=== PATIENT | male | born 1980 | race Caucasian/White ===

== ENCOUNTER 2019-05-26 08:01 | Outpatient (CLI) | payer OTHER ==
--- NOTE | 2019-05-26 16:12 | Ultrasound Report ---
Reason: ESSENTIAL (PRIMARY) HYPERTENSION Procedure Date: 05/26/2019 Accession Number: [id number] / [id number] Procedure: US - Arterial Visceral Complete CPT Code: FULL RESULT: EXAM: RENAL ARTERY DOPPLER ULTRASOUND EXAM DATE: 05/26/2019 09:27 AM. CLINICAL HISTORY: Essential (primary) hypertension. COMPARISON: None. TECHNIQUE: Real-time sonographic vascular imaging was performed by the digital court reporter through the renal arterial system with a linear transducer utilizing color-flow, Doppler flow, and spectral analysis. Multiple correspondence representative static images were saved for review. FINDINGS: Right kidney measures up to 10.6 cm in maximal sagittal dimension and left kidney measures up to 11.7 cm in maximal sagittal dimension with normal echotexture and no hydronephrosis on either side. The aorta, bilateral renal veins and sampled renal arteries as well as intraparenchymal renal branches are patent by color Doppler and spectral Doppler as analyzed. Brisk systolic upstrokes are preserved throughout the sample arterial systems with select renal artery aortic ratios and peak systolic velocities in centimeters per second as below. Right Kidney: 10.6 x 5.4 x 4.4 cm. Echotexture: Within normal limits. Right Segmental Artery: Upper pole: PSV 17 cm/sec, RI 0.58. Mid pole: PSV 16 cm/sec, RI 0.54. Lower pole: PSV 16 cm/sec, RI 0.60. Right Renal Artery: Origin: PSV 75 cm/sec, RA/AO 0.65. Proximal: PSV 79 cm/sec, RA/AO 0.68. Mid: PSV 88 cm/sec, RA/AO 0.76. Distal: PSV 73 cm/sec, RA/AO 0.63. Aorta PSV: 116 cm/sec. RRV Patent: Yes. Left Kidney: 11.7 x 6.1 x 5.2 cm. Echotexture: Within normal limits. Left Segmental Artery: Upper pole: PSV 23 cm/sec, RI 0.56. Mid pole: PSV 14 cm/sec, RI 0.58. Lower pole: PSV 21 cm/sec, RI 0.57. Left Renal Artery: Origin: PSV 75 cm/sec, RA/AO 0.65. Proximal: PSV 93 cm/sec, RA/AO 0.80. Mid: PSV 72 cm/sec, RA/AO 0.62. Distal: PSV 76 cm/sec, RA/AO 0.66. LRV Patent: Yes. IMPRESSION: No evidence of compromise to the vascular supply of the kidneys. CRITERIA FOR CLASSIFICATION OF RENAL ARTERY (RA) DISEASE BY DUPLEX SCANNING: RA Diameter Reduction/ RA PSV/ RAR: Normal, < 180 cm/sec, < 3.5 < 60%, >= 180 cm/sec, < 3.5 >= 60%, >= 180 cm/sec, >= 3.5 Total Occlusion: Undetectable; Not applicable RADIA
== END 2019-05-26 08:02 | disposition home or self-care (01) ==
LOC: DI 08:01
PROVIDERS: ATTEND Registered Nurse Diabetes Educator
DX: I10 Essential (primary) hypertension (principal)
CPT/HCPCS: 93975

== ENCOUNTER 2021-11-29 13:13 | Emergency (ER) | payer OTHER ==
[2021-11-29 13:40] LABS: BASOPHILS % (AUTO) 0.5 %; EOSINOPHILS # (AUTO) 0.4 10^3/uL (0.0-0.7); EOSINOPHILS % (AUTO) 4.7 %; HCT - HEMATOCRIT 43.2 % (42.0-52.0); HGB - HEMOGLOBIN 15.1 g/dL (14.0-18.0); LYMPHOCYTES # (AUTO) 2.4 10^3/uL (1.5-3.5); LYMPHOCYTES % (AUTO) 31.9 %; MEAN CORPUSCULAR HEMOGLOBIN 31.5 pg (27.0-31.0); MEAN CORPUSCULAR VOLUME 90.2 fL (80.0-94.0); MEAN PLATELET VOLUME 9.6 fL (7.4-11.4); MONOCYTES # (AUTO) 0.4 10^3/uL (0.0-1.0); MONOCYTES % (AUTO) 5.8 %; NEUTROPHILS # (AUTO) 4.4 10^3/uL (1.5-6.6); NEUTROPHILS % (AUTO) 56.8 %; PLT - PLATELET COUNT 320 10^3/uL (130-450); RED BLOOD COUNT 4.79 10^6/uL (4.70-6.10); RED CELL DISTRIBUTION WIDTH 12.6 % (12.0-15.0); WHITE BLOOD COUNT 7.7 x10^3/uL (4.8-10.8)
--- NOTE | 2021-11-29 13:55 | XRAY Report ---
PROCEDURE: Chest 1 View X-Ray INDICATIONS: Chest pain TECHNIQUE: One view of the chest was acquired. COMPARISON: None. FINDINGS: Surgical changes and devices: None. Lungs and pleura: No pleural effusions or pneumothorax. Lungs are clear. Mediastinum: Mediastinal contours appear normal. Heart size is normal. Bones and chest wall: No suspicious bony lesions. Overlying soft tissues appear unremarkable. IMPRESSION: No acute cardiopulmonary abnormality. Reviewed by: Jovi Hubbard MD on 11/29/2021 1:54 PM [facility] Approved by: Jovi Hubbard MD on 11/29/2021 1:54 PM [facility] Station ID: [id number]
[2021-11-29 13:57] LABS: ALBUMIN 4.6 g/dL (3.2-5.5); ALBUMIN/GLOBULIN RATIO 1.4 (1.0-2.2); CALCIUM 9.2 mg/dL (8.5-10.3); CREATININE 1.1 mg/dL (0.6-1.2); POTASSIUM 3.4 mmol/L (3.5-5.0); TOTAL PROTEIN 7.8 g/dL (6.7-8.2)
--- NOTE | 2021-11-29 14:56 | ED Physician Documentation ---
History of Present Illness - Stated complaint Stated Complaint: CHEST PX - Chief complaint Chief Complaint: Cardiac - Additonal information Additional information: 41-year-old male who carries a history of hypertension presents to the emergency department for evaluation of sharp chest pain. He reports that it woke him up last night from sleep it was nonradiating. No associated nausea or diaphoresis. He went back to sleep and this morning when he woke up he again found that he had some chest pressure again that lasted just a few seconds. He denies any shortness of air. Chest pain is not pleuritic. Nonexertional. No history of similar. No tobacco or vape use. He does have a history of hypertension for which he takes amlodipine, lisinopril and hydrochlorothiazide. No previous history of coronary artery disease. No family history of sudden early cardiac . He called [employer] who advised him to come to the ER. Review of Systems Constitutional: denies: Fever, Chills Eyes: reports: Reviewed and negative Throat: reports: Reviewed and negative Cardiac: reports: Chest pain / pressure. denies: Palpitations, Pedal edema, Calf pain Respiratory: denies: Dyspnea, Cough, Hemoptysis GI: reports: Reviewed and negative : reports: Reviewed and negative Skin: reports: Reviewed and negative PD PAST MEDICAL HISTORY - Past Medical History Past Medical History: Yes - Allergies Allergies/Adverse Reactions: Allergies Allergy/AdvReac Type Severity Reaction Status Date / Time No Known Drug Allergies Allergy Verified 11/29/21 13:24 - Social History Does the pt smoke?: No Smoking Status: Never smoker PD ED PE NORMAL - General General: Alert and oriented X 3, No acute distress - HEENT HEENT: PERRL - Neck Neck: Supple, no meningeal sign, No adenopathy, No JVD - Cardiac Cardiac: RRR, No murmur, No gallop - Respiratory Respiratory: No respiratory distress, Clear bilaterally - Abdomen Abdomen: Normal bowel sounds, Soft - Back Back: No CVA TTP, No spinal TTP Results - Vitals Vitals: Vital Signs - 24 hr 11/29/21 13:22 Temperature 36.0 C L Heart Rate 66 Respiratory 16 Rate Blood Pressure 146/91 H O2 Saturation 95 Oxygen O2 Source Room air - EKG (time done) 1316 Rate: Rate (enter#) (69) Rhythm: NSR [place]: Normal Intervals: Normal [place] QRS: Poor R wave progression Ischemia: Normal ST segments Compare to prior EKG: Old EKG unavailable Computer interpretation: Agree with computer - Labs Labs: Laboratory Tests 11/29/21 11/29/21 11/29/21 13:36 13:36 13:36 WBC 7.7 RBC 4.79 Hgb 15.1 Hct 43.2 MCV 90.2 MCH 31.5 H MCHC 35.0 RDW 12.6 Plt Count 320 MPV 9.6 Neut # (Auto) 4.4 Lymph # (Auto) 2.4 Ray # (Auto) 0.4 Eos # (Auto) 0.4 Baso # (Auto) 0.0 Absolute Nucleated RBC 0.00 Nucleated RBC % 0.0 Sodium 137 Potassium 3.4 L Chloride 98 L Carbon Dioxide 29 Anion Gap 10.0 BUN 16 Creatinine 1.1 Estimated GFR (MDRD) 73 L Glucose 133 H Calcium 9.2 Total Bilirubin 1.0 AST 30 ALT 40 Alkaline Phosphatase 45 Troponin I High Sens 4.4 Total Protein 7.8 Albumin 4.6 Globulin 3.2 Albumin/Globulin Ratio 1.4 Lipase 56 H PD MEDICAL DECISION MAKING - ED course Complexity details: reviewed results ED course: Well-appearing 41-year-old male presents emergency department for evaluation of sharp chest pain that woke him up from sleep last night and briefer episode again this morning. He does have a history of hypertension. Well-controlled with amlodipine, lisinopril and hydrochlorothiazide. Screening labs including troponin are unremarkable. Chest x-ray without acute focal opacity. Screening EKG is nonischemic. Patient's heart score is 2. Patient is advised to follow-up with [facility]. He would benefit from outpatient referral for outpatient stress test. Emergent return precautions were otherwise discussed. Departure - Departure Disposition: Home, Self Care Clinical Impression: Chest pain Qualifiers: Chest pain type: unspecified Qualified Code(s): R07.9 - Chest pain, unspecified Condition: Stable Record reviewed to determine appropriate education?: Yes Instructions: ED Heart Disease Risk Factors Comments: Mahamed it was a pleasure to meet you today. You are seen in the emergency department for chest pain. Your screening labs, EKG and chest x-ray are all without worrisome findings. However you do have some risk factors for heart disease that include being a male, over the age of 40 as well as having history of hypertension. Please discuss this ED visit with [facility]. He would benefit from outpatient referral for outpatient cardiac stress test or echocardiogram. If at any point you develop chest pain that worsens with ambulation, you have fainting episodes, chest pain causes you to be diaphoretic or nauseated or does not simply go away then please return immediately to the ER for second evaluation.
[2021-11-29 15:15] VITALS: BP 137/80
== END 2021-11-29 15:15 | disposition home or self-care (01) ==
LOC: ED 13:13
DX: R07.9 Chest pain, unspecified (principal); I10 Essential (primary) hypertension
CPT/HCPCS: 36415; 80053; 83690; 84484; 85025; 93005; 99283; 99284

== ENCOUNTER 2022-02-02 09:01 | Emergency (ER) | payer OTHER ==
[2022-02-02 09:57] LABS: BASOPHILS % (AUTO) 0.4 %; EOSINOPHILS # (AUTO) 0.2 10^3/uL (0.0-0.7); EOSINOPHILS % (AUTO) 1.7 %; HCT - HEMATOCRIT 42.9 % (42.0-52.0); HGB - HEMOGLOBIN 15.1 g/dL (14.0-18.0); LYMPHOCYTES # (AUTO) 1.8 10^3/uL (1.5-3.5); MEAN CORPUSCULAR HEMOGLOBIN 31.7 pg (27.0-31.0); MEAN CORPUSCULAR HGB CONC 35.2 g/dL (32.0-36.0); MEAN CORPUSCULAR VOLUME 90.1 fL (80.0-94.0); MEAN PLATELET VOLUME 10.2 fL (7.4-11.4); MONOCYTES # (AUTO) 0.8 10^3/uL (0.0-1.0); MONOCYTES % (AUTO) 7.5 %; NEUTROPHILS # (AUTO) 8.1 10^3/uL (1.5-6.6); NEUTROPHILS % (AUTO) 73.9 %; PLT - PLATELET COUNT 309 10^3/uL (130-450); RED BLOOD COUNT 4.76 10^6/uL (4.70-6.10); RED CELL DISTRIBUTION WIDTH 13.1 % (12.0-15.0)
[2022-02-02 10:08] LABS: ALBUMIN 4.9 g/dL (3.2-5.5); ALBUMIN/GLOBULIN RATIO 1.8 (1.0-2.2); BILIRUBIN,TOTAL 1.1 mg/dL (0.2-1.0); CALCIUM 9.2 mg/dL (8.5-10.3); CREATININE 0.9 mg/dL (0.6-1.2); POTASSIUM 3.3 mmol/L (3.5-5.0); TOTAL PROTEIN 7.7 g/dL (6.7-8.2)
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
[2022-02-02] MEDS ORDERED: IOVERSOL 320 100 ML VIAL IVP ONE ×2 (10:43→14:56)
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
[2022-02-02 12:20] LABS: BILIRUBIN,URINE NEGATIVE (NEGATIVE); GLUCOSE, URINE (UA) NEGATIVE (NEGATIVE); KETONES,URINE (UA) NEGATIVE (NEGATIVE); LEUKOCYTE ESTERASE, URINE NEGATIVE (NEGATIVE); NITRITE,URINE NEGATIVE (NEGATIVE); OCCULT BLOOD,URINE NEGATIVE (NEGATIVE); PH,URINE 7.5 PH (5.0-7.5); PROTEIN,URINE NEGATIVE (NEGATIVE); UROBILINOGEN,URINE 0.2 (NORMAL) E.U./dL (NORMAL)
[2022-02-02 12:22] LABS: CLARITY,URINE CLEAR (CLEAR)
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
[2022-02-02 13:09] VITALS: BP 135/100
== END 2022-02-02 13:17 | disposition home or self-care (01) ==
LOC: ED 09:01
DX: S20.212A Contusion of left front wall of thorax, initial encounter (principal); S30.1XXA Contusion of abdominal wall, initial encounter; S16.1XXA Strain of muscle, fascia and tendon at neck level, initial encounter; V43.52XA Car driver injured in collision with other type car in traffic accident, initial encounter
CPT/HCPCS: 36415; 71260; 72125; 74177; 80053; 81003; 83690; 85025; 93005; 99284; Q9967; 81001; 87086